=== PATIENT | female | born 1955 | race Caucasian/White ===

== ENCOUNTER → 2016-04-13 | Outpatient (CLI) | payer BC ==
[~2016-04-13] MED LIST: AMLODIPINE BESYL5 MG PO; BENADRYL50 MG PO; CIPRO500 MG PO; DAILY VALUE1 EACH PO; ESTRACE42.5 GM VG; HYZAAR 50-121 TABLET PO; MOTRIN IB200 MG PO; PROZAC20 MG PO; TOPROL XL50 MG PO; TYLENOL EXTRA500 MG PO; VITAMIN D2000 UNIT PO
== END | disposition home or self-care (01) ==
LOC: CDC 09:10
DX: Z01.810 Encounter for preprocedural cardiovascular examination (principal)
CPT/HCPCS: 93000

== ENCOUNTER 2017-09-24 12:21 | Emergency (ER) | payer BC ==
[~2017-09-24] VITALS: Ht 160 cm; Wt 55.8 kg
[2017-09-24 14:01] LABS: HEMATOCRIT 39.6 % (36.0-46.0); HEMOGLOBIN 14.1 G/DL (11.9-15.5); MCH 34.3 PG (29.0-34.0); MCHC 35.6 G/DL (30.0-36.0); MCV 96.4 FL (83-99); PLATELET COUNT 199 K/uL (156-360); RBC DIS.WIDTH-CV 11.9 % (11.8-14.6); RBC DIS.WIDTH-SD 42.3 % (39-53); RED BLOOD COUNT 4.11 M/uL (3.80-5.20)
[2017-09-24 14:22] LABS: CHLORIDE 105 mEq/L (99-109); TROP-I INTERPRETATION NEGATIVE; TROPONIN-I < 0.01 ng/mL (0.0-0.30)
[2017-09-24 14:23] LABS: POTASSIUM 4.1 mEq/L (3.7-5.4); SODIUM 141 mEq/L (136-147)
[2017-09-24 14:24] LABS: GLUCOSE 90 mg/dL (70-99)
[2017-09-24 14:28] LABS: CREATININE 0.8 mg/dL (0.6-1.3); GFR ESTIMATE (CALCULATED) > 59 mL/min/
[2017-09-24 14:29] LABS: UREA NITROGEN (BUN) 24 mg/dL (9-23)
[2017-09-24 15:49] VITALS: BP 146/78
== END 2017-09-24 15:51 | disposition home or self-care (01) ==
LOC: EME 12:21
PROVIDERS: Nurse Practitioner Family
DX: R51 Headache (principal); G62.9 Polyneuropathy, unspecified; R07.89 Other chest pain; I10 Essential (primary) hypertension; Z85.828 Personal history of other malignant neoplasm of skin; Z87.891 Personal history of nicotine dependence; Z90.49 Acquired absence of other specified parts of digestive tract; Z88.5 Allergy status to narcotic agent
CPT/HCPCS: 70450; 71046; 80048; 84484; 85027; 93005; 99281; 99284